=== PATIENT | male | born 1975 | race Caucasian/White ===

== ENCOUNTER 2017-03-30 08:59 | Emergency (ER) | payer OTHER ==
[2017-03-30 09:16] VITALS: BP 145/78
--- NOTE | 2017-03-30 09:47 | UC ---
Respiratory Complaint HPI - HPI Summary HPI Summary: 41 yo male with <48 hour hx of nasal congestion/post nasal drip and cough mild CHÁVEZ and myalgias DM I hx asthma as kid - History of Current Complaint Chief Complaint: UCRespiratory Stated Complaint: RESP ISSUE Time Seen by Provider: 03/30/17 09:43 Hx Obtained From: Patient Onset/Duration: Sudden Onset, Lasting Hours Timing: Constant Severity Initially: Mild Severity Currently: Moderate Pain Intensity: 3 Pain Scale Used: 0-10 Numeric Character: Cough: Nonproductive Aggravating Factors: Nothing Alleviating Factors: Nothing Associated Signs And Symptoms: Positive: URI, Nasal Congestion - Allergies/Home Medications Allergies/Adverse Reactions: Allergies Allergy/AdvReac Type Severity Reaction Status Date / Time No Known Allergies Allergy Verified 11/26/16 11:06 Home Medications: Home Medications Cholesterol Med 03/30/17 [History] Insulin Lispro [Humalog] 03/30/17 [History] Lisinopril [Prinivil TAB 20 mg] 20 mg PO DAILY 03/30/17 [History Confirmed 03/30] PMH/Surg Hx/FS Hx/Imm Hx Endocrine History: Diabetes Cardiovascular History: Hypertension - Surgical History Surgical History: Yes Surgery Procedure, Year, and Place: RIGHT shoulder. LEFT shoulder. Rotator cuffs. RIGHT knee meniscus. LEFT ACL. RIGHT ankle. LEFT arm - Family History Known Family History: Positive: Unknown - ADOPTED - Social History Alcohol Use: None Substance Use Type: Marijuana Substance Use Comment - Amount & Last Used: not in a few months Smoking Status (MU): Never Smoked Tobacco Review of Systems Constitutional: Fatigue Skin: Negative Eyes: Negative ENT: Nasal Discharge Respiratory: Cough Cardiovascular: Negative Gastrointestinal: Negative Genitourinary: Negative Motor: Negative Neurovascular: Negative Musculoskeletal: Myalgia Neurological: Headache Psychological: Negative Is Patient Immunocompromised?: No All Other Systems Reviewed And Are Negative: Yes Physical Exam Triage Information Reviewed: Yes Appearance: Well-Appearing, No Pain Distress, Well-Nourished Vital Signs: Initial Vital Signs Temp 98.6 F 03/30/17 09:09 Pulse 64 03/30/17 09:09 Resp 16 03/30/17 09:09 BP 145/78 03/30/17 09:09 Pulse Ox 100 03/30/17 09:09 Vital Signs Reviewed: Yes Eyes: Positive: Conjunctiva Clear ENT: Positive: Pharynx normal, Nasal congestion, TMs normal, Uvula midline. Negative: Tonsillar swelling, Tonsillar exudate, Trismus, Muffled voice, Hoarse voice, Sinus tenderness Neck: Positive: Supple, Nontender, No Lymphadenopathy Respiratory: Positive: Chest non-tender, Lungs clear Cardiovascular: Positive: RRR, No Murmur Musculoskeletal: Positive: ROM Intact, No Edema Neurological: Positive: Alert Psychological Exam: Normal Skin Exam: Normal UC Diagnostic Evaluation - Laboratory O2 Sat by Pulse Oximetry: 100 Respiratory Course/Dx - Course Course Of Treatment: influenza (-) - Differential Dx/Diagnosis Provider Diagnoses: sinusitis Discharge - Discharge Plan Condition: Stable Disposition: HOME Patient Education Materials: Sinusitis (ED) Additional Instructions: recheck for worsening symptoms recheck in 4-5 days if not better
== END 2017-03-30 10:38 | disposition home or self-care (01) ==
LOC: UCEAST 08:59
DX: E11.9 Type 2 diabetes mellitus without complications (principal); Z79.4 Long term (current) use of insulin; I10 Essential (primary) hypertension; J32.9 Chronic sinusitis, unspecified; F12.90 Cannabis use, unspecified, uncomplicated
CPT/HCPCS: 87502; 99212; G0463

== ENCOUNTER 2017-07-30 10:58 | Emergency (ER) | payer BC, OTHER ==
--- OUTSIDE RECORDS SUMMARY | 2017-07-30 11:05 | XMS REPORT ---
:1975 External Reference #:[id number] Author Organization [facility] Address [address] [place] [address] Phone [phone] Care Team Providers Name Role Phone Blessing Wren M.D. Care Team Information Prekindergarten Teacher Unavailable Blessing Wren M.D. Primary Care Physician Unavailable Payers Type Date Identification Numbers Payment Provider Subscriber Commercial Effective: Policy Number: [id number] [facility] Sherry Mixon Farooq 2017 PayID: [id number] [address] [place] [address] Problems Date Description Provider Status Onset: 03/05/2015 Type 1 diabetes mellitus Blessing Wren M.D. Active Onset: 03/05/2015 Essential hypertension Blessing Wren M.D. Active Onset: 03/20/2015 Diabetic retinopathy Blessing Wren M.D. Active Onset: 04/07/2015 Anxiety state Blessing Wren M.D. Active Family History Date Family Member(s) Problem(s) Comments General Adopted Father Unknown Social History Type Date Description Comments Marital Status Legal Status: Lives With Spouse Diet Healthy, Well Balanced Occupation [employer] de[employer] Cigarette Use Never Smoked Cigarettes ETOH Use Occasional Recreational Drug Use Denies Drug Use Smoking Patient has never smoked Exercise Type/Frequency Exercises regularly Allergies, Adverse Reactions, Alerts Date Description Reaction Status Severity Comments 03/05/2015 NKDA active Medications Medication Date Status Form Strength Qnty SIG Indications Ordering Provider Novolog 07/11/ Active Solution 100Unit/ML 30ml per sliding Cornelia 2018 scale via [place], insulin pump Afnp-C Atorvastatin 03/21/ Active Tablets 10mg 90tab 1 by mouth E10.9 Blessing Calcium 2017 s every day Lisa Wren Xanax 04/07/ Active Tablets 0.5mg 30tab take 04/05-1 F41.8 Blessing 2015 s tablet by [place], mouth every M.D. day as needed Lexapro 04/07/ Active Tablets 10mg 90tab take 04/05 F41.8 Blessing 2015 s tablet every [place], day M.D. Lisinopril 03/05/ Active Tablets 20mg 90tab take 1 tablet I10 Blessing 2014 s by mouth [place], every day M.D. Rebeka / Active Tablets 180mg 1 by mouth Unknown Allergy 0000 every day Aspirin / Active Chewtabs 81mg 1 by mouth Unknown 0000 every day Contour Blood / Active use once a Unknown Test Strips 0000 day Humalog / Hx Solution 100Unit/ML used in the Unknown 0000 - pump and per sliding scale 2017 instructions One Touch / Hx test BS 5-6 Unknown Ultra 0000 - times qd 2017 Vital Signs Date Vital Result Comment 07/11/2017 BP Systolic 120 mmHg BP Diastolic 78 mmHg Heart Rate 60 /min Body Temperature 98.6 F Weight 230.00 lb 03/21/2017 BP Systolic 140 mmHg BP Diastolic 80 mmHg Heart Rate 68 /min Body Temperature 98.2 F Respiratory Rate 18 /min Height 71.5 inches 5'11.50" measured 03/05/15 Weight 228.00 lb BMI (Body Mass Index) 31.4 kg/m2 08/11/2016 BP Systolic 126 mmHg BP Diastolic 80 mmHg Heart Rate 66 /min Body Temperature 98.6 F Respiratory Rate 16 /min Height 71.5 inches 5'11.50" measured 03/05/15 Weight 236.12 lb BMI (Body Mass Index) 32.5 kg/m2 05/05/2015 BP Systolic 132 mmHg BP Diastolic 82 mmHg Heart Rate 72 /min Body Temperature 98.1 F Respiratory Rate 16 /min Height 71.5 inches 5'11.50" measured 03/05/15 Weight 217.00 lb BMI (Body Mass Index) 29.8 kg/m2 04/07/2015 BP Systolic 128 mmHg BP Diastolic 80 mmHg Heart Rate 68 /min Body Temperature 97.9 F Respiratory Rate 16 /min Height 71.5 inches 5'11.50" measured 03/05/15 Weight 217.00 lb BMI (Body Mass Index) 29.8 kg/m2 03/05/2015 BP Systolic 154 mmHg BP Diastolic 94 mmHg Heart Rate 66 /min Body Temperature 97.7 F Respiratory Rate 16 /min Height 71.5 inches 5'11.50" measured 03/05/15 Weight 217.00 lb BMI (Body Mass Index) 29.8 kg/m2 Results Test Date Test Result H/L Range Note Laboratory test finding 03/21/2017 Hemoglobin A1c (Fma) 8.3 % High 4.1- 5.7 Microalb, Random (Fma/CMC/CTX) 20.0 mg/L 0.5-37 Ua - Non Micro (Fma) 03/21/2017 Appearance clear Color yellow Glucose, Urine (Fma/CMC/CTX) 500 Bilirubin neg Ketones trace SP Grav 1.025 Blood neg PH 5.5 Protein neg Urobil 0.2 Nitrite neg Leukocytes (Fma/CMC/Centrex) neg Comprehensive Metabolic Prof 03/21/2017 Sodium 143 mEq/L 134-149 Potassium 4.5 mEq/L 3.6-5.5 Chloride 106 mEq/L 94-112 Carbon Dioxide 28 mEq/L 21-32 Glucose 202 mg/dL High 70-105 1 BUN 14 mg/dL 6-26 Creatinine 1.0 mg/dL 0.6-1.4 BUN/Creat Ratio 14.0 CALC 8.0-36.0 Calcium 10.2 mg/dL 8.6-10.2 Total Protein 7.0 g/dL 6.4-8.3 Albumin 4.6 g/dL 3.8-5.5 Globulin 2.4 g/dL 2.0-4.8 A/G Ratio 1.9 CALC 0.6-2.3 Alk. Phosphatase 94 U/L 22-95 Alt (SGPT) 29 U/L 7-35 Ast (Sgot) 29 U/L 5-34 Total Bilirubin 0.7 mg/dL 0.2-1.3 GFR Non- >60 ml/min/1.73m^ >=60 GFR >60 ml/min/1.73m^ >=60 Lipid Profile 03/21/2017 Cholesterol 149 mg/dL 120-200 Triglycerides 89 mg/dL 30-200 HDL Cholesterol 76 mg/dL High 30-70 2 LDL (Calculated) 55 CALC 0-129 VLDL Cholesterol 18 mg/dL 0-50 HDL Risk Factor 2.0 CALC 0.0-4.4 Complete Blood Count 03/21/2017 WBC 7.2 x10^3/UL 3.6-9.6 RBC 4.70 x10^6/UL 3.90-5.70 HGB 15.1 g/dL 12.1-17.2 HCT 44 % 36-50 MCV 94.0 fL 82.2-97.4 MCH 32.1 pg 27.6-33.3 MCHC 34.3 g/dL 33.0-35.5 RDW 13.1 % 11.6-13.7 PLT 276 x10^3/UL 150-400 MPV 9.0 fL 7.4-10.4 Gran # 5.3 x10^3/UL 1.5-7.2 Lymph# 1.7 x10^3/UL 0.7-4.9 [place]# 0.2 x10^3/UL 0.1-0.9 Gran % 72.0 % 42.2-75.2 Lymph % 23.9 % 20.5-51.1 [place]% 4.1 % 1.7-9.3 Laboratory test finding 03/21/2017 TSH 1.63 mIU/L 0.50-6.00 Free T4 0.79 ng/dL 0.75-1.54 Laboratory test finding 08/11/2016 TSH 2.76 mIU/L 0.50-6.00 Free T4 0.92 ng/dL 0.75-1.54 Complete Blood Count 08/11/2016 WBC 5.6 x10^3/UL 3.6-9.6 RBC 4.95 x10^6/UL 3.90-5.70 HGB 15.8 g/dL 12.1-17.2 HCT 47 % 36-50 MCV 94.0 fL 82.2-97.4 MCH 31.9 pg 27.6-33.3 MCHC 33.9 g/dL 33.0-35.5 RDW 13.8 % High 11.6-13.7 PLT 269 x10^3/UL 150-400 MPV 7.8 fL 7.4-10.4 Gran # 3.5 x10^3/UL 1.5-7.2 Lymph# 1.9 x10^3/UL 0.7-4.9 [place]# 0.2 x10^3/UL 0.1-0.9 Gran % 60.8 % 42.2-75.2 Lymph % 34.4 % 20.5-51.1 [place]% 4.8 % 1.7-9.3 Lipid Profile 08/11/2016 Cholesterol 211 mg/dL High 120-200 Triglycerides 98 mg/dL 30-200 HDL Cholesterol 74 mg/dL High 30-70 LDL (Calculated) 117 CALC 0-129 VLDL Cholesterol 20 mg/dL 0-50 HDL Risk Factor 2.9 CALC 0.0-4.4 Comprehensive Metabolic Prof 08/11/2016 Sodium 137 mEq/L 134-149 Potassium 4.3 mEq/L 3.6-5.5 Chloride 97 mEq/L 94-112 Carbon Dioxide 27 mEq/L 21-32 Glucose 218 mg/dL High 70-105 3 BUN 14 mg/dL 6-26 Creatinine 1.0 mg/dL 0.6-1.4 BUN/Creat Ratio 14.0 CALC 8.0-36.0 Calcium 9.3 mg/dL 8.6-10.2 Total Protein 7.1 g/dL 6.4-8.3 Albumin 4.5 g/dL 3.8-5.5 Globulin 2.6 g/dL 2.0-4.8 A/G Ratio 1.7 CALC 0.6-2.3 Alk. Phosphatase 102 U/L High 22-95 Alt (SGPT) 27 U/L 7-35 Ast (Sgot) 26 U/L 5-34 Total Bilirubin 0.4 mg/dL 0.2-1.3 GFR Non- >60 ml/min/1.73m^ >=60 GFR >60 ml/min/1.73m^ >=60 Ua - Non Micro (Fma) 08/11/2016 Appearance clear Color yellow Glucose, Urine (Fma/CMC/CTX) 500mg/dL Bilirubin neg Ketones neg SP Grav 1.010 Blood neg PH 6.0 Protein neg Urobil 0.2 Nitrite neg Leukocytes (Fma/CMC/Centrex) neg Laboratory test finding 08/11/2016 Hemoglobin A1c (Fma) 8.6 % High 4.1- 5.7 Microalb, Random (Fma/CMC/CTX) <5.0 mg/L 0.5-37 Urine Microalbumin Random 03/26/2015 Ur Microalbumin (mg/L) 7.0 mg/L Urine Creatinine 208.62 mg/dL Urine Microalbumin/Creatinine 3.3 ug/mg <31 Laboratory test finding 03/26/2015 TSH (Thyroid Stim Horm) 1.30 ?IU/mL 0.34-5.60 Thyroperoxidase AB 0.83 IU/mL <9 Vitamin B12 511 pg/mL 180-914 4 Celiac Panel 03/26/2015 Tissue Transglutaminase IgA Ab <1.2 U/mL 5 Immunoglobulin A 176 mg/dL 61 - 356 Celiac Interpretation See Comment 6 Laboratory test finding 03/26/2015 Adrenal 21 Hydroxylase <1 U/mL < 1 7 Comprehensive Metabolic Prof 03/12/2015 Sodium 139 mEq/L 134-149 Potassium 4.1 mEq/L 3.6-5.5 Chloride 98 mEq/L 94-112 Carbon Dioxide 31 mEq/L 21-32 Glucose 192 mg/dL High 70-105 8 BUN 9 mg/dL 6-26 Creatinine 0.9 mg/dL 0.6-1.4 BUN/Creat Ratio 10.0 CALC 8.0-36.0 Calcium 8.7 mg/dL 8.6-10.2 Total Protein 6.5 g/dL 6.4-8.3 Albumin 4.0 g/dL 3.8-5.5 Globulin 2.5 g/dL 2.0-4.8 A/G Ratio 1.6 CALC 0.6-2.3 Alk. Phosphatase 85 U/L 22-95 Alt (SGPT) 17 U/L 7-35 Ast (Sgot) 26 U/L 5-34 Total Bilirubin 0.7 mg/dL 0.2-1.3 GFR Non- >60 ml/min/1.73m^ >=60 GFR >60 ml/min/1.73m^ >=60 Lipid Profile 03/12/2015 Cholesterol 167 mg/dL 120-200 Triglycerides 101 mg/dL 30-200 HDL Cholesterol 69 mg/dL 30-70 LDL (Calculated) 78 CALC 0-129 VLDL Cholesterol 20 mg/dL 0-50 HDL Risk Factor 2.4 CALC 0.0-4.4 Complete Blood Count 03/12/2015 WBC 4.6 x10^3/UL 3.6-9.6 RBC 4.86 x10^6/UL 3.90-5.70 HGB 15.4 g/dL 12.1-17.2 HCT 46 % 36-50 MCV 94.0 fL 82.2-97.4 MCH 31.7 pg 27.6-33.3 MCHC 33.8 g/dL 33.0-35.5 RDW 13.3 % 11.6-13.7 PLT 210 x10^3/UL 150-400 MPV 8.2 fL 7.4-10.4 Gran # 2.8 x10^3/UL 1.5-7.2 Lymph# 1.7 x10^3/UL 0.7-4.9 [place]# 0.1 x10^3/UL 0.1-0.9 Gran % 59.1 % 42.2-75.2 Lymph % 37.1 % 20.5-51.1 [place]% 3.8 % 1.7-9.3 Laboratory test finding 03/12/2015 TSH 2.48 mIU/L 0.50-6.00 9 Laboratory test finding 03/12/2015 Hemoglobin A1c 7.7 % High 4.1-5.7 (Fma/CMC,CX) Microalb, Random (Fma/CMC/CTX) 10.3 mg/L 0.5-37 Ua - Non Micro (Fma) 03/12/2015 Appearance CLEAR Color YELLOW Glucose, Urine (Fma/CMC/CTX) NEG Bilirubin NEG Ketones NEG SP Grav 1.015 Blood NEG PH 6.5 Protein NEG Urobil 0.2 Nitrite NEG Leukocytes (Fma/CMC/Centrex) NEG 1 NON-FASTING 2 SPECIMEN CLOTTED; ANALYSIS CANNOT BE PERFORMED 3 NON-FASTING 4 Normal Range 180 to 914 Indeterminate Range 145 to 180 Deficient Range <145 5 REFERENCE VALUE <4.0 (Negative) Test Performed by: [address] [address] [employer] Developer: Mike Harper II, M.D., Ph.D. 6 Negative serology. Celiac disease unlikely. However, approximately 10% of patients with celiac disease are seronegative. Also, patients who are already adhering to a gluten-free diet may be seronegative. If celiac disease is highly clinically suspected, consider HLA-DQ typing. Test Performed by: [address] [address] [employer] Developer: Mike Harper II, M.D., Ph.D. 7 Test Performed by: [place] [address] [employer] Developer: Mike Harper II, M.D., Ph.D. 8 consistent w/ previous results 9 FASTING Procedures Date CPT Code Description Status 08/31/2016 Diabetic Retinal Eye Exam Completed Encounters Type Date Location Provider CPT E/M Dx Office Visit 03/21/2017 12:40p [facility] Blessing Wren M.D. 17134 Z00.00 E10.9 I10 F41.8 Office Visit 08/11/2016 3:20p [facility] Blessing Wren M.D. 51713 E10.9 I10 F41.8 Office Visit 05/05/2015 4:40p [facility] Blessing Wren M.D. 43881 E10.9 F41.8 Office Visit 04/07/2015 2:30p [facility] Blessing Wren M.D. 10701 E10.9 I10 F41.8 Office Visit 03/05/2015 4:20p [facility] Blessing Wren M.D. 83723 R07.89 E10.9 I10 Plan of Care 07/11/2017 - Carol Moser10.9 Type 1 diabetes mellitus without [id number] Essential (primary) [id number] Other specified anxiety disordersFollow up:Followup:. (Follow up)AllNew Medication:Novolog 100 Unit/ MLComments:~B_~U_Medication Management~b_~u_ Patient Understands medications he' s taking? Yes No Are there Barriers to Adherence? Yes No Has the patient been asked about herbal supplements and therapies, and OTC meds? Yes No ~B_~U_Care Plan~b_~u_1. Patient has been queried about patient' s goals/preferences and functional/lifestyle goals at relevant visits. If relevant, describe: na2. Treatment goals as explained to the patient: abovemanagement of chronic illness3. Are there barriers to meeting treatment goals? Yes No If Yes, please describe:hx of missed appointments with endocrine 4. Self-Management goals as described to the patient: Yes No continue same rx ok to change to novalog after review with Dr Means
[2017-07-30 11:06] VITALS: BP 156/101
--- NOTE | 2017-07-30 11:22 | UC ---
Respiratory Complaint HPI - HPI Summary HPI Summary: 42 year old male with cough. loose cough chest and head congestion for 8 days. denies fever. c/o ear congestion, sore throat. [ End ] - History of Current Complaint Chief Complaint: UCGeneralIllness Stated Complaint: COUGH, AND CHEST CONGESTION Time Seen by Provider: 07/30/17 11:14 Hx Obtained From: Patient Onset/Duration: Gradual Onset Timing: Constant Severity Initially: Mild Pain Intensity: 2 Character: Cough: Productive - Allergies/Home Medications Allergies/Adverse Reactions: Allergies Allergy/AdvReac Type Severity Reaction Status Date / Time No Known Allergies Allergy Verified 07/30/17 11:06 Home Medications: Home Medications Atorvastatin* [Lipitor*] 10 mg PO 1700 07/30/17 [History Confirmed 07/30/17] PMH/Surg Hx/FS Hx/Imm Hx Previously Healthy: Yes Endocrine History: Dyslipidemia - Surgical History Surgical History: Yes Surgery Procedure, Year, and Place: RIGHT shoulder. LEFT shoulder. Rotator cuffs. RIGHT knee meniscus. LEFT ACL. RIGHT ankle. LEFT arm - Family History Known Family History: Positive: Unknown - ADOPTED - Social History Occupation: Employed Full-time Lives: With Family Alcohol Use: Occasionally Substance Use Type: Marijuana Substance Use Comment - Amount & Last Used: not in a few months Smoking Status (MU): Never Smoked Tobacco Review of Systems Constitutional: Fatigue ENT: Sinus Congestion, Sinus Pain/Tenderness Respiratory: Cough Is Patient Immunocompromised?: No All Other Systems Reviewed And Are Negative: Yes Physical Exam Triage Information Reviewed: Yes Appearance: Well-Appearing, No Pain Distress, Well-Nourished Vital Signs: Initial Vital Signs Pulse 83 07/30/17 10:59 Resp 18 07/30/17 10:59 BP 156/101 07/30/17 10:59 Pulse Ox 99 07/30/17 10:59 Vital Signs Reviewed: Yes Eye Exam: Normal ENT Exam: Normal Dental Exam: Normal Neck exam: Normal Neck: Positive: 1 Respiratory Exam: Normal Cardiovascular Exam: Normal Musculoskeletal Exam: Normal Neurological Exam: Normal Psychological Exam: Normal Skin Exam: Normal UC Diagnostic Evaluation - Laboratory O2 Sat by Pulse Oximetry: 99 Respiratory Course/Dx - Course Course Of Treatment: per pt at PCP 2 weeks ago and BP WNL. monitor at this time. with duration of Sx will still use supportive treatment for 2-3 days and if sx worsen then start antibiotics he will cont zyrtec and start flonase - Differential Dx/Diagnosis Differential Diagnosis/HQI/PQRI: Bronchitis, Lower Resp Infection, Sinusitis Provider Diagnoses: bronchitis Discharge - Sign-Out/Discharge Documenting (check all that apply): Discharge/Admit/Transfer - Discharge Plan Condition: Good Disposition: HOME Prescriptions: Amoxicillin/Clavulanate TAB* [Augmentin TAB 875*] 875 mg PO BID #20 tab Patient Education Materials: Acute Bronchitis (ED) Referrals: Blessing Wren MD [Primary Care Provider] - 3 Days Additional Instructions: YOUR BLOOD PRESSURE WAS ELEVATED TODAY LIKELY FROM YOUR CURRENT ILLNESS BUT PLEASE FOLLOW UP WITH YOUR PRIMARY CARE DOCTOR ABOUT THIS - Billing Disposition and Condition Condition: GOOD Disposition: HOME
== END 2017-07-30 11:35 | disposition home or self-care (01) ==
LOC: UCEAST 10:58
DX: J40 Bronchitis, not specified as acute or chronic (principal); E78.5 Hyperlipidemia, unspecified
CPT/HCPCS: 99212; G0463

== ENCOUNTER 2017-12-19 09:01 | Emergency (ER) | payer BC ==
[2017-12-19 09:39] VITALS: BP 139/73
--- NOTE | 2017-12-19 09:57 | UC ---
Back Pain HPI - HPI Summary HPI Summary: 42 yo male presents with low back pain located around the tailbone area. He tells me that 2 days ago he woke up with this pain and it has been persistent since. Hurts to touch. He has been taking tylenol and ibuprofen for the pain with no relief. Denies injury, recent illness, abdominal pain, n/v, dysuria, loss of bowel/bladder control, radiation of pain, numbness or tingling. - History of Current Complaint Chief Complaint: UCBackPain Stated Complaint: BACK PAIN Time Seen by Provider: 12/19/17 09:57 Hx Obtained From: Patient Onset/Duration: Sudden Onset Severity Initially: Moderate Severity Currently: Moderate Pain Intensity: 8 Pain Scale Used: 0-10 Numeric - Allergies/Home Medications Allergies/Adverse Reactions: Allergies Allergy/AdvReac Type Severity Reaction Status Date / Time No Known Allergies Allergy Verified 12/19/17 09:39 PMH/Surg Hx/FS Hx/Imm Hx Endocrine History: Diabetes, Dyslipidemia Cardiovascular History: Hypertension - Surgical History Surgical History: Yes Surgery Procedure, Year, and Place: RIGHT shoulder. LEFT shoulder. Rotator cuffs. RIGHT knee meniscus. LEFT ACL. RIGHT ankle. LEFT arm - Family History Known Family History: Positive: Unknown - ADOPTED - Social History Occupation: Employed Full-time Lives: With Family Alcohol Use: Daily Substance Use Type: Marijuana Substance Use Comment - Amount & Last Used: 2-3 times a month Smoking Status (MU): Never Smoked Tobacco Review of Systems Constitutional: Negative Skin: Negative Respiratory: Negative Cardiovascular: Negative Gastrointestinal: Negative Genitourinary: Negative Motor: Negative Neurovascular: Negative Musculoskeletal: Other: - LBP Neurological: Negative Psychological: Negative All Other Systems Reviewed And Are Negative: Yes Physical Exam - Summary Physical Exam Summary: GENERAL: NAD. WDWN. No pain distress. SKIN: No rashes, sores, lesions, or open wounds. NECK: Supple. FROM. Nontender. No lymphadenopathy. CHEST: CTAB. No r/r/w. No accessory muscle use. Breathing comfortably and in no distress. CV: RRR. Without m/r/g. Pulses intact. Cap refill <2seconds MSK: TTP over right SI. Pain with flexion and extension of spine. Negative SLR b /l. Negative BRYON. Strength 5/5 B/L LEs including dorsiflexion and plantar flexion. FROM B/L LEs. No edema. NEURO: Alert. Sensations intact B/L LEs L3-S1. PSYCH: Age appropriate behavior. Triage Information Reviewed: Yes Vital Signs: Initial Vital Signs Temp 98.7 F 12/19/17 09:34 Pulse 85 12/19/17 09:34 Resp 18 12/19/17 09:34 BP 139/73 12/19/17 09:34 Pulse Ox 99 12/19/17 09:34 Vital Signs Reviewed: Yes Back Pain Course/Dx - Course Course Of Treatment: Suspect muscle strain of lower back. Rx for flexeril and meloxicam. Advised to apply heat to the area. F/u if symptoms worsen or persist. - Differential Dx/Diagnosis Provider Diagnoses: Low back strain Discharge - Sign-Out/Discharge Documenting (check all that apply): Patient Departure All imaging exams completed and their final reports reviewed: No Studies - Discharge Plan Condition: Stable Disposition: HOME Prescriptions: Cyclobenzaprine TAB* [Flexeril 10 MG TAB*] 10 mg PO TID PRN #15 tab PRN Reason: Pain Meloxicam 7.5 mg PO BID PRN #20 tab PRN Reason: Pain Patient Education Materials: Muscle Strain (ED), Lower Back Exercises (ED) Referrals: Blessing Wren MD [Primary Care Provider] - Additional Instructions: If you develop a fever, shortness of breath, chest pain, new or worsening symptoms - please call your PCP or go to the ED. Your blood pressure was mildly elevated at todays visit. Please see your primary provider within 4 weeks for recheck and re-evaluation. 1) Do not take ibuprofen/motrin/advil in addition to the Meloxicam as these medications may interact - Billing Disposition and Condition Condition: STABLE Disposition: Home - Attestation Statements Provider Attestation: Per institutional requirements, I have reviewed the chart, however, I was not consulted specifically or made aware of this patient by the midlevel provider. I did not personally evaluate, interact with , or disposition this patient.
== END 2017-12-19 10:15 | disposition home or self-care (01) ==
LOC: UCEAST 09:01
CPT/HCPCS: 99212; G0463

== ENCOUNTER 2018-03-06 07:25 | Emergency (ER) | payer BC ==
[2018-03-06 07:44] VITALS: BP 147/91
--- NOTE | 2018-03-06 08:12 | ED ---
Throat Pain/Nasal Congestion - HPI Summary HPI Summary: 42M year old male presents with cough for the past week. He develop sinus congestion three days ago. occasional fever and headache. no wheezing, chest pain or SOB. admits to sore throat and post nasal drip. has been using cough medication. hx of dm type 1 and htn. blood sugar have been normal. - History of Current Complaint Chief Complaint: UCRespiratory Time Seen by Provider: 03/06/18 08:05 - Allergies/Home Medications Allergies/Adverse Reactions: Allergies Allergy/AdvReac Type Severity Reaction Status Date / Time No Known Allergies Allergy Verified 03/06/18 07:44 Home Medications: Home Medications D-Methorphan/PE/Acetaminophen [Multi Symptom Flu & Sever 20-10-500 mg] 1 pow PO DAILY PRN 03/06/18 [History Confirmed 03/06/18] PMH/Surg Hx/FS Hx/Imm Hx Endocrine/Hematology History: Reports: Hx Diabetes - type i Denies: Hx Thyroid Disease Cardiovascular History: Reports: Hx Hypertension - ON MEDS Denies: Hx Pacemaker/ICD Respiratory History: Denies: Hx Asthma, Hx Chronic Obstructive Pulmonary Disease (COPD) GI History: Denies: Hx Ulcer History: Denies: Hx Renal Disease Sensory History: Denies: Hx Hearing Aid Psychiatric History: Denies: Hx Panic Disorder - Surgical History Surgery Procedure, Year, and Place: RIGHT shoulder. LEFT shoulder. Rotator cuffs. RIGHT knee meniscus. LEFT ACL. RIGHT ankle. LEFT arm Infectious Disease History: No Infectious Disease History: Denies: Hx Clostridium Difficile, Hx Hepatitis, Hx Human Immunodeficiency Virus (HIV), Hx of Known/Suspected MRSA, Hx Shingles, Hx Tuberculosis, Hx Known/ Suspected VRE, Hx Known/Suspected VRSA, History Other Infectious Disease, Traveled Outside the [place] in Last 30 Days - Family History Known Family History: Positive: Unknown - ADOPTED - Social History Alcohol Use: Rare Substance Use Type: Reports: Marijuana Substance Use Comment - Amount & Last Used: rarely Smoking Status (MU): Never Smoked Tobacco Review of Systems Negative: Fever Positive: Sore Throat, Nasal Discharge Negative: Chest Pain Positive: Cough. Negative: Shortness Of Breath All Other Systems Reviewed And Are Negative: Yes Physical Exam Triage Information Reviewed: Yes Vital Signs On Initial Exam: Initial Vitals Temp Pulse Resp BP Pulse Ox 97.8 F 72 16 147/91 99 03/06/18 07:39 03/06/18 07:39 03/06/18 07:39 03/06/18 07:39 03/06/18 07:39 Vital Signs Reviewed: Yes Appearance: Positive: Well-Appearing Skin: Positive: Warm, Dry Head/Face: Positive: Normal Head/Face Inspection Eyes: Positive: Normal, EOMI, ANGEL, Conjunctiva Clear ENT: Positive: Pharynx normal, Nasal congestion, Nasal drainage, TMs normal. Negative: Sinus tenderness Neck: Positive: Supple, Nontender, No Lymphadenopathy Respiratory/Lung Sounds: Positive: Clear to Auscultation, Breath Sounds Present Cardiovascular: Positive: Normal, RRR Abdomen Description: Positive: Nontender, Soft Bowel Sounds: Positive: Present Musculoskeletal: Positive: Normal Neurological: Positive: Normal Psychiatric: Positive: Normal Diagnostics - Vital Signs Vital Signs Temp Pulse Resp BP Pulse Ox 03/06/18 07:39 97.8 F 72 16 147/91 99 - Laboratory Lab Statement: Any lab studies that have been ordered have been reviewed, and results considered in the medical decision making process. EENT Course/Dx - Course Course Of Treatment: 42M year old male presents with cough for the past week. He develop sinus congestion three days ago. occasional fever and headache. no wheezing, chest pain or SOB. admits to sore throat and post nasal drip. has been using cough medication. on exam nasal congestion present. lungs CTA. discussed likely viral at this point so will treat supportatively. patient has history of HTN so can follow up with primary about htn blood pressure. patient understand and agrees with plan. - Differential Diagnoses Differential Diagnoses: Pharyngitis, Sinusitis, URI/Bronchitis - Diagnoses Provider Diagnoses: Upper respiratory infection Discharge - Sign-Out/Discharge Documenting (check all that apply): Patient Departure All imaging exams completed and their final reports reviewed: No Studies - Discharge Plan Condition: Good Disposition: HOME Prescriptions: Benzonatate CAP* [Tessalon 100 MG CAP*] 100 mg PO TID #21 cap Fluticasone NASAL SPRAY 50MCG* [Flonase NASAL SPRAY 50MCG*] 2 spray BOTH NARES DAILY #1 btl Patient Education Materials: Upper Respiratory Infection (ED) Referrals: Belssing Wren MD [Primary Care Provider] - Additional Instructions: Use Tessalon three times a day for cough Use intranasal steroid one spray each nostril twice a day Use saline in the nose for nasal congestion Take Tylenol or ibuprofen for pain every 6 hours Return to UC if develop any new or worsening symptoms - Billing Disposition and Condition Condition: GOOD Disposition: Home - Attestation Statements Provider Attestation: Per institutional requirements, I have reviewed the chart, however, I was not consulted specifically or made aware of this patient by the midlevel provider. I did not personally evaluate, interact with , or disposition this patient.
== END 2018-03-06 08:21 | disposition home or self-care (01) ==
LOC: UCEAST 07:25
DX: J06.9 Acute upper respiratory infection, unspecified (principal); E10.9 Type 1 diabetes mellitus without complications; I10 Essential (primary) hypertension
CPT/HCPCS: 99212; G0463

== ENCOUNTER 2018-03-23 17:08 | Emergency (ER) | payer BC ==
--- OUTSIDE RECORDS SUMMARY | 2018-03-23 17:13 | XMS REPORT | Continuity of Care Document ---
:1975 External Reference #:[id number] Author Name Daniella Thibodeaux O.D. Address [address] [place] [address] Care Team Providers Name Role Phone Blessing Wren MD Primary Care Physician Unavailable Payers Type Date Identification Numbers Payment Provider Subscriber Policy Number: [id number] Jun Hicks PayID: [id number] [address] [place] [address] Policy Number: [id number] [facility] Sherry Farooq PayID: [id number] [address] [place] [address] Advance Directives Description No Information Available Problems Date Description Provider Status Onset: Type 1 diabetes mellitus Active Onset: Asthma Active Onset: Essential hypertension Active Onset: 03/19/2015 Myopia Celina Barraza O.D. Active Onset: 03/19/2015 Regular astigmatism Celina Barraza O.D. Active Onset: 03/19/2015 Type 1 diabetes mellitus with Celina Barraza O.D. Active moderate nonproliferative diabetic retinopathy without macular edema Onset: 08/31/2016 Type 1 diabetes mellitus with mild Shaquille Fowler M.D. Active nonproliferative diabetic retinopathy without macular edema, bilateral Family History Date Family Member(s) Problem(s) Comments Father Unknown Mother Unknown Social History Type Date Description Comments Sex Unknown Marital Status Has been 1 time Occupation [employer] Work Status Full-Time Employment ETOH Use Occasionally consumes alcohol Tobacco Use Start: Unknown Patient has never smoked Recreational Drug Use Current Drug User maijuana Smoking Status Reviewed: 03/16/18 Patient has never smoked Allergies, Adverse Reactions, Alerts Description No Known Drug Allergies Medications Medication Date Status Form Strength Qnty SIG Indications Ordering Provider Lisinopril Active Tablets 20mg [place], 000 Blessing Teresa M.D. Humalog Active Solution 100Unit/ML auto pump Unknown 000 Benzonatate Active Capsules 100mg Take 1 Unknown 000 Capsule By Mouth Three Times A Day For Cough Alprazolam Active Tablets 0.5mg Take 1/2 - Unknown 000 1 Tablet By Mouth Every Day as Needed For Mood Atorvastatin Active Tablets Unknown 000 Immunizations Description No Information Available Vital Signs Description No Information Available Results Description No Information Available Procedures Date Code Description Status 03/13/2018 10776 Est Patient Comprehensive Exam Completed 08/31/2016 30938 Determination Of Refractive State Completed 08/31/2016 47701 Est Patient Comprehensive Exam Completed 03/19/2015 28159 Scanning Computerized Opthalmic Diagnostic Posterior Seg Completed Retina 03/19/2015 72707 Determination Of Refractive State Completed 03/19/2015 17196 Est Patient Comprehensive Exam Completed Encounters Description No Information Available Plan of Treatment 03/16/2018 - Daniella Thibodeaux O.D.H52.13 Myopia, bilateralComments:You have Myopia, or near sightedness. I have given you a prescription for glasses.Follow up:as [id number] Regular astigmatism, bilateralComments: Smoking can increase the risk of developing or worsening any eye related disease , as well as affect your overall health. If you are a smoker, we strongly recommend that you quit.If you are not a smoker, we strongly recommend that you do not start. Astigmatism is a common vision condition that happens when a person's cornea is not symmetrical. Dr. Thibodeaux has given you a prescription to correct for this.
--- OUTSIDE RECORDS SUMMARY | 2018-03-23 17:13 | XMS REPORT | Continuity of Care Document ---
:1975 External Reference #:[id number] Author Name Shaquille Fowler M.D. Address [address] [place] [address] Care Team Providers Name Role Phone Blessing Wren MD Primary Care Physician Unavailable Payers Type Date Identification Numbers Payment Provider Subscriber Policy Number: [id number] [facility] Sherry Bryantlyndon PayID: [id number] [address] [address] [place] [address] Policy Number: [id number] Jun Plascencia Farooq Hicks PayID: [id number] [address] [place] [address] Advance Directives Description No Information Available Problems [...] Current Drug User maijuana Smoking Status Reviewed: 03/13/18 Patient has never smoked Allergies, Adverse Reactions, Alerts Description No Known Drug Allergies Medications Medication Date Status Form Strength Qnty SIG Indications Ordering Provider Lisinopril Active Tablets 20mg [place], 000 Blessing Teresa M.D. Humalog Active Solution [...] Information Available Procedures Date Code Description Status 08/31/2016 54444 Determination Of Refractive State Completed 08/31/2016 40045 Est Patient Comprehensive Exam Completed 03/19/2015 96939 Scanning Computerized Opthalmic Diagnostic Posterior Seg Completed Retina 03/19/2015 40893 Determination Of Refractive State Completed 03/19/2015 73507 Est Patient Comprehensive Exam Completed Encounters Description No Information Available Plan of Treatment 03/13/2018 - Shaquille Fowler M.D.[id number] Type 1 diabetes mellitus with mild nonproliferative diabetic retinopathy without macular edema, right eyeComments: I can detect diabetic changes in your right eye. Proper control of your diabetes is important for the health of your right eye. It is important that you keep all of your follow-up appointments.Follow up:1 Year Follow Up DFE, OCT MAC You can expect to have your eyes dilated at your next visit. If Dr. Fowler orders any additional testing, it may require extra time. We recommend that you bring sunglasses, as dilation drops often make you light sensitive until they wear off. We always recommend you bring someone to drive you home if you are uncomfortable driving with your eyes dilated. If you have any questions before your next visit, feel free to call our office at .E10.1220 Type 1 diabetes mellitus with moderate nonproliferative diabetic retinopathy without macular edema, left eyeComments:I can detect diabetic changes in your left eye. Proper control of your diabetes is important for thehealth of your left eye. It is important that you keep all of your follow up appointments.H25.13 Age-related nuclear cataract, bilateralComments:You have been diagnosed with cataracts. If you are happy with your vision as it is now, then we willsee you at your next scheduled appointment. If you feel like your vision is getting worse before your scheduled appointment, please call Marita Cornell at [phone].
[2018-03-23 17:21] VITALS: BP 152/80
--- NOTE | 2018-03-23 17:25 | UC ---
Throat Pain/Nasal Vasyl HPI - HPI Summary HPI Summary: Reports sinus congestion, subj. fever, head congestion, post nasal drip for 2 days. Had recent visit at urgent care 2 wks ago w/ same symptoms and was told it was viral. Had a few days of no symptoms and improvement. Then started again w/ symptoms. has tried several otc meds w/ no relief. - History of Current Complaint Stated Complaint: SINUS CONGESTION Time Seen by Provider: 03/23/18 17:09 Hx Obtained From: Patient Onset/Duration: Sudden Onset Cough: None Associated Signs & Symptoms: Positive: Sinus Discomfort, Nasal Discharge. Negative: Wheezing - Allergies/Home Medications Allergies/Adverse Reactions: Allergies Allergy/AdvReac Type Severity Reaction Status Date / Time No Known Allergies Allergy Verified 03/23/18 17:21 PMH/Surg Hx/FS Hx/Imm Hx Endocrine History: Diabetes - Surgical History Surgical History: Yes Surgery Procedure, Year, and Place: RIGHT shoulder. LEFT shoulder. Rotator cuffs. RIGHT knee meniscus. LEFT ACL. RIGHT ankle. LEFT arm - Family History Known Family History: Positive: Unknown - ADOPTED - Social History Alcohol Use: Rare Substance Use Type: Marijuana Substance Use Comment - Amount & Last Used: rarely Smoking Status (MU): Never Smoked Tobacco Review of Systems All Other Systems Reviewed And Are Negative: Yes Constitutional: Positive: Negative Skin: Positive: Negative Eyes: Negative: Drainage ENT: Positive: Sinus Congestion, Sinus Pain/Tenderness. Negative: Sore Throat, Ear Ache, Nasal Discharge Respiratory: Positive: Negative Cardiovascular: Positive: Negative Neurological: Negative: Headache Physical Exam Triage Information Reviewed: Yes Appearance: Well-Appearing Vital Signs Reviewed: Yes ENT: Positive: Pharynx normal, Nasal congestion, TMs normal, Uvula midline. Negative: Tonsillar swelling, Tonsillar exudate, Hoarse voice, Dental tenderness , Sinus tenderness Neck: Positive: No Lymphadenopathy Respiratory Exam: Normal Cardiovascular Exam: Normal Skin Exam: Normal Throat Pain/Nasal Course/Dx - Course Assessment/Plan: 2 day hx of sinusitis symptoms. Exam unremarkable. Was dx'd w / viral illness a few wks ago and then had some days of no symptoms. Strongly recommended time and symptoms relief but pt. wanted antibx. We discussed appropriate tx for viral etiology and if not improved likely viral. Discussed side effects of antibx. Of note has elevated bp, should f/u w pcp. - Differential Dx/Diagnosis Differential Diagnosis/HQI/PQRI: Pharyngitis, Sinusitis, Tonsillitis, URI Provider Diagnosis: Sinusitis Discharge - Sign-Out/Discharge Documenting (check all that apply): Patient Departure All imaging exams completed and their final reports reviewed: No Studies - Discharge Plan Condition: Good Disposition: HOME Prescriptions: Amoxicillin/Clavulanate TAB* [Augmentin TAB 500 mg*] 500 mg PO BID 5 Days #10 tab Patient Education Materials: Sinusitis (ED), Chronic Hypertension (DC) Referrals: Blessing Wren MD [Primary Care Provider] - Additional Instructions: I think you have a viral sinusitis but given your most recent visit at the urgent care I have prescribed antibiotics. If you feel you need them you may take. If you do not improve it could mean your symptoms were from a virus rather than bacteria. Your blood pressure was also a little elevated today, please follow this up w/ pcp. - Billing Disposition and Condition Condition: GOOD Disposition: Home
== END 2018-03-23 17:32 | disposition home or self-care (01) ==
LOC: UCEAST 17:08
DX: J32.9 Chronic sinusitis, unspecified (principal)
CPT/HCPCS: 99212; G0463